=== PATIENT | male | born 1985 | race Caucasian/White ===

== ENCOUNTER 2017-11-26 20:30 | Emergency (ER) | payer MEDICARE, MEDICAID ==
[~2017-11-26] VITALS: Ht 165.1 cm; Wt 63.5 kg
[2017-11-26 20:31] VITALS: BP 120/76
[2017-11-26 20:48] VITALS: BP 123/76
== END 2017-11-26 20:46 | disposition home or self-care (01) ==
LOC: MED 20:30
DX: H66.91 Otitis media, unspecified, right ear (principal); Z88.0 Allergy status to penicillin
CPT/HCPCS: 99283

== ENCOUNTER 2017-11-28 14:53 | Emergency (ER) | payer MEDICARE, MEDICAID ==
[~2017-11-28] VITALS: Ht 165.1 cm; Wt 59.1 kg
[2017-11-28 15:18] VITALS: BP 123/79
--- NOTE | 2017-11-28 15:22 | NUR ---
PT AMBULATES TO BED 6, REPORT GIVEN TO [facility]
--- NOTE | 2017-11-28 15:30 | NUR ---
PATIENT PRESENTS TO ED WITH COMPLAINTS OF RIGHT EAR PAIN. PATIENT WAS SEEN YESTERDAY AND DIAGNOSED WITH EAR INFECTION. PATIENT STATES PAIN OF 9/10 AT THIS TIME; VSS; PATIENT POSITIONED FOR COMFORT; HOB ELEVATED; BEDRAILS UP X1; BED DOWN. ER MD MADE AWARE OF PT STATUS.
[2017-11-28] MEDS ORDERED: IBUPROFEN 800 MG TAB PO ONE (16:30)
--- NOTE | 2017-11-28 16:46 | NUR ---
Patient discharged with v/s stable. Written and verbal after care instructions given and explained. Patient alert, oriented and verbalized understanding of instructions. Ambulatory with steady gait. All questions addressed prior to discharge. ID band removed. Patient advised to follow up with PMD. Rx of MOTRIN, TRAMADOL, AND CIPRODEX given. Patient educated on indication of medication including possible reaction and side effects. Opportunity to ask questions provided and answered.
[2017-11-28 16:47] VITALS: BP 123/79
== END 2017-11-28 16:46 | disposition home or self-care (01) ==
LOC: MED 14:53
DX: H60.91 Unspecified otitis externa, right ear (principal); Z88.0 Allergy status to penicillin
CPT/HCPCS: 99283